=== PATIENT | male | born 1965 | race Caucasian/White ===

== ENCOUNTER 2017-03-30 07:27 | Outpatient (CLI) ==
--- NOTE | 2017-03-30 09:18 | US ---
EXAM: ULTRASOUND ABDOMEN COMPLETE HISTORY: Left upper quadrant abdominal pain FINDINGS: The liver size was within normal limits at 15 cm. The liver parenchyma demonstrated normal sonographi c appearance without evidence of intrahepatic biliary dilatation or focal lesion. Patent and hepatop edal main portal vein. The gallbladder demonstrates a tiny echogenic structure contiguous with the mucosa measuring about 0. 4 cm with no mobility or obvious posterior acoustic shadowing. The gallbladder was otherwise unremar kable. Gallbladder wall thickness was within normal limits at 0.3 cm. The common bile duct diameter was normal at 0.48 cm. Visualized pancreas was unremarkable. No ascites. IVC was open. Aorta had no evidence of aneurysmal caliber. The splenic length was normal at 11 cm. The right kidney measur ed 10.8 cm and the left kidney 10.5 cm. No hydronephrosis. IMPRESSION: 1. Tiny echogenic structure adherent to the gallbladder mucosa which may represent a small polyp or nonmobile calculus. The former is probably more likely. This structure measures about 0.4 cm in siz e. The gallbladder was otherwise unremarkable. Normal common bile duct diameter. 2. Otherwise within normal limits and unremarkable exam.
== END 2017-03-30 07:28 | disposition home or self-care (01) ==
LOC: RAD 07:27
PROVIDERS: ATTEND Internal Medicine
DX: R10.12 Left upper quadrant pain (principal)

== ENCOUNTER 2018-09-05 16:44 | Emergency (ER) ==
[2018-09-05 16:51] VITALS: BP 142/94; TEMP 100.3; BMI 33.0
--- NOTE | 2018-09-05 17:05 | ED.PDOC ---
General ED Provider: Dr. MARIAH RUIZ Chief Complaint: Nausea/Vomiting Stated Complaint: Nausea, vomiting and upper abdominal pain -onset after eatting out at 2:30 AM today at [employer] -[employer], gravy eggs and sausage. Has multiple episodes of vomiting and intense cramping pain in LUQ / mid epigastrium. Denies diarrhea Time Seen by Physician: 17:00 Mode of Arrival: Wheelchair Information Source: Patient Exam Limitations: No limitations Primary Care Provider: KEAGAN LOPEZ Nursing and Triage Documentation Reviewed and Agree: Yes Does patient meet sepsis criteria?: No System Inflammatory Response Syndrome: Not Applicable Sepsis Protocol: For patient's 13 years and over: Temp is 96.8 and below OR 101 and greater Pulse >90 BPM Resp >20/minute Acutely Altered Mental Status Are patient's symptoms suggestive of a new infection, such as: -Pneumonia -Skin, Soft Tissue -Endocarditis -UTI -Bone, Joint Infection -Implantable Device -Acute Abdominal Infection -Wound Infection -Meningitis -Blood Stream Catheter Infection -Unknown GI Complaint Exam - Abdominal Pain Complaint/Exam Onset: Sudden Duration: all day Symptoms Are: Still present Timing: Intermittent Initial Severity: Moderate Current Severity: Moderate Location of Pain: LUQ, Epigastric Radiates To: Reports: Back Character: Reports: Dull, Aching Aggravating: Reports: None Alleviating: Reports: None Associated Signs and Symptoms: Reports: Nausea, Vomiting. Denies: Diaphoresis, Fever, Cough, Chest pain, Dizziness, Back pain, Constipation, Blood in stool, Dysuria, Urinary frequency, Decreased urine output, Decreased appetite, Discharge, Diarrhea, Decreased activity Related History: Denies: Similar episode AAA Risk Factors: Reports: None Cardiac Risk Factors: Reports: None Testicular Torsion Risk Factors: Reports: None Surgical Obstruction Risk Factors: Reports: None Related Surgical History: Reports: None Abdominal Findings: Present: Abdominal distention Differential Diagnoses: Bowel Obstruction, Gastroenteritis Review of Systems - Review Of Systems Constitutional: Reports: Chills, Weakness Eyes: Reports: No symptoms Ears, Nose, Mouth, Throat: Reports: No symptoms Respiratory: Reports: No symptoms Cardiac: Reports: No symptoms GI: Reports: Abdomen distended, Abdominal pain, Poor fluid intake : Reports: No symptoms Musculoskeletal: Reports: No symptoms Skin: Reports: No symptoms Neurological: Reports: No symptoms Endocrine: Reports: No symptoms All Other Systems: Reviewed and Negative Past Medical History - Past Medical History Previously Healthy: Yes Endocrine: Reports: None Cardiovascular: Reports: None Respiratory: Reports: None Hematological: Reports: None Gastrointestinal: Reports: None Genitourinary: Reports: None Neuro/Psych: Reports: None Musculoskeletal: Reports: None Cancer: Reports: None - Surgical History General Surgical History: Reports: None - Family History Family History: Reports: None - Social History Smoking Status: Never smoker Hx Substance Use: No Alcohol Screening: Occasionally - Immunizations Tetanus Shot up to Date: Yes Physical Exam - Physical Exam Appearance: Ill-appearing, Obese Ill-appearing: Moderate Pain Distress: Mild Eyes: DELORIS, EOMI, Conjunctiva clear ENT: Ears normal, Nose normal, Oropharynx normal Neck: Supple Respiratory: Airway patent, Breath sounds clear, Breath sounds equal, Respirations nonlabored Cardiovascular: RRR, Pulses normal, No rub, No murmur GI/: Soft, No masses, No Organomegaly, Tender (LUQ/no guarding or rebound), Bowel sounds hypoactive Musculoskeletal: Normal strength Skin: Warm, Dry, Normal color Neurological: Sensation intact, Motor intact, Reflexes intact, Cranial nerves intact, Alert, Oriented Psychiatric: Affect appropriate Re-Evaluation - Re-Evaluation Time of Re-Evaluation: 18:15 Status: Improved Vital Signs Stable: Yes Pain Level: 2/10 Appearance: NAD Lungs: Clear Skin: Warm and Dry Neuro: Alert and Oriented X3 CV: RRR Additional Comments: Abdomen soft and non tender/no guarding Physician Notification - Case Discussed Physician Notified: Evening Physician advised of patient and treatmentlan. Time of Notification: 19:00 Critical Care Note - Critical Care Note Total Time (mins): 0 Course - Course Hematology/Chemistry: 09/05/18 17:05 09/05/18 17:05 Orders, Labs, Meds: Lab Review 09/05/18 09/05/18 09/05/18 17:05 17:05 17:05 WBC 9.92 RBC 5.15 Hgb 16.2 Hct 45.8 MCV 88.9 MCH 31.5 H MCHC 35.4 RDW Coeff of Abe 11.6 Plt Count 290 Immature Gran % (Auto) 0.2 Neut % (Auto) 86.6 Lymph % (Auto) 6.1 L Logan % (Auto) 6.3 Eos % (Auto) 0.6 Baso % (Auto) 0.2 Immature Gran # (Auto) 0.0 Neut # (Auto) 8.6 H Lymph # (Auto) 0.6 Logan # (Auto) 0.6 Eos # (Auto) 0.1 Baso # (Auto) 0.0 Sodium 141.6 Potassium 4.02 Chloride 103.7 Carbon Dioxide 22.2 Anion Gap 19.72 BUN 20.4 H Creatinine 0.98 Estimated GFR (MDRD) 80.00 BUN/Creatinine Ratio 20.81 Glucose 134.6 H Lactic Acid Calcium 9.57 Total Bilirubin 1.00 AST 38.0 ALT 39.5 Alkaline Phosphatase 72.8 Total Protein 8.41 H Albumin 4.96 Globulin 3.45 Albumin/Globulin Ratio 1.43 Lipase 71.9 Procalcitonin 0.20 Influ A Molecular Assay Influ B Molecular Assay 09/05/18 09/05/18 17:05 17:20 WBC RBC Hgb Hct MCV MCH MCHC RDW Coeff of Abe Plt Count Immature Gran % (Auto) Neut % (Auto) Lymph % (Auto) Logan % (Auto) Eos % (Auto) Baso % (Auto) Immature Gran # (Auto) Neut # (Auto) Lymph # (Auto) Logan # (Auto) Eos # (Auto) Baso # (Auto) Sodium Potassium Chloride Carbon Dioxide Anion Gap BUN Creatinine Estimated GFR (MDRD) BUN/Creatinine Ratio Glucose Lactic Acid 2.99 H Calcium Total Bilirubin AST ALT Alkaline Phosphatase Total Protein Albumin Globulin Albumin/Globulin Ratio Lipase Procalcitonin Influ A Molecular Assay Negative by naat Influ B Molecular Assay Negative by naat Orders Category Date Time Status NPO REMINDER: IMAGING ONCE CARE 09/05/18 17:29 Completed IV [ED IV/MEDIPORT/POWERPORT] .ONCE EMERGENCY 09/05/18 17:06 Active BLOOD CULTURE (ED ONLY) Stat LAB 09/05/18 17:20 Completed CBC W/ AUTO DIFF Stat LAB 09/05/18 17:05 Completed CMP [COMPREHENSIVE METABOLIC PANEL] Stat LAB 09/05/18 17:05 Completed FLU A & B MOLECULAR [FLU A/B MOLECULAR] Stat LAB 09/05/18 17:05 Completed LACTIC ACID Stat LAB 09/05/18 17:20 Completed LIPASE Stat LAB 09/05/18 17:05 Completed PROCALCITONIN Stat LAB 09/05/18 17:05 Completed RAPID STREP SCREEN [MOLECULAR GROUP A STREP] Stat LAB 09/05/18 17:05 Completed 0.9 % Sodium Chloride [Saline Flush] MEDS 09/05/18 17:06 Discontinued 1 syr IVF PRN PRN Famotidine Inj [Pepcid] MEDS 09/05/18 17:09 Discontinued 20 mg IVP ONCE STA Sodium Chloride 0.9% [Sodium Chloride] 1,000 ml MEDS 09/05/18 17:06 Discontinued IV BOLUS Sodium Chloride 0.9% [Sodium Chloride] 1,000 ml MEDS 09/05/18 18:[address] ABDOMEN/PELVIS W CONTRAST Stat RADS 09/05/18 17:28 Completed Medications Discontinued Medications Generic Name Dose Route Start Last Admin Trade Name Freq PRN Reason Stop Dose Admin Famotidine 20 mg 09/05/18 17:09 09/05/18 17:20 Pepcid IVP 09/05/18 17:10 20 mg ONCE STA Administration Sodium Chloride 1,000 mls @ 1,000 mls/hr 09/05/18 17:06 09/05/18 17:20 Sodium Chloride IV 09/05/18 18:05 1,000 mls/hr BOLUS STA Administration Sodium Chloride 1,000 mls @ 1,000 mls/hr 09/05/18 18:33 09/05/18 18:47 Sodium Chloride IV 09/05/18 19:32 1,000 mls/hr BOLUS STA Administration Sodium Chloride 1 syr 09/05/18 17:06 Saline Flush IVF PRN PRN To flush IV Vital Signs: Temp Pulse Resp BP Pulse Ox 09/05/18 16:45 100.3 F H 138 H 16 142/94 H 96 Departure - Departure Time of Disposition: 19:40 Disposition: HOME SELF-CARE Discharge Problem: Gastroenteritis, Dehydration Instructions: Dehydration (ED), Gastroenteritis (ED) Condition: Good Pt referred to PMD for follow-up: Yes IPMP verified?: No Additional Instructions: Advance diet as tolerated. Clear liquids for next 12 hr-24 hrs then advance to full liquid, soft diet etc. Re turn to ER if worsens Allergies/Adverse Reactions: Allergies No Known Allergies Allergy (Unverified 09/05/18 17:36) Home Medications: Ambulatory Orders Hydrocodone Bit/Acetaminophen [[place] 10-325] 1 tab PO PRN PRN 09/05/18 Rabeprazole Sodium [Aciphex] 20 mg PO PRN PRN 09/05/18 Disposition Discussed With: Patient, Family Additional Comments Additional Comments: 1805 hrs Discussed findings with Dr Lopez. Will infuse additional liter of NS fluids, advance diet and if tolerates discharge to home after fluids infused.
[2018-09-05] MEDS ORDERED: SODIUM CHLORIDE 1,000 ML IV STA ×2 (17:06→18:33)
[2018-09-05] MEDS ORDERED: PEPCID IVP STA (17:09)
--- NOTE | 2018-09-05 18:18 | CT ---
Exam. CT of abdomen and pelvis with contrast History. Abdominal pain Comparison. CT 09/09/2011 Technique Axial scans acquired 3 mm slice thicknesses following IV contrast. Coronal and sagittal sequence com pleted FINDINGS Images at the level lower thorax show no pulmonary infiltrate or pleural fluid. Abdomen. There is no intraperitoneal free air attenuation of the liver is slightly less and spleen. No hepatic mass is seen. There is no ascites. There is no inflammation the pancreas. Adrenal glan ds unremarkable. There is no cholelithiasis or biliary duct dilatation. No renal calcification. 1 cm cyst mid-left kidney. No obstruction either kidney or ureter Aorta is normal caliber. There is n o abdominal adenopathy. Tiny fat containing umbilical hernia.There are minimally distended fluid-hillary led loops of small bowel, possible mild enteritis. Appendix is not dilated. Minimal diverticulosis rectosigmoid colon without diverticulitis. Pelvis. No free fluid is seen. No hernia. Minimal prostatic hypertrophy. Skeletal structures. Multilevel degenerate disc disease. Disc space narrowing L3-L4 and L4-L5 level with some facet arthropathy lower lumbar spine. No osteolytic or blastic lesions seen involving bon e. Impression 1. No cholelithiasis or biliary dilatation. 2. No renal calcification is seen. No obstruction of either kidney or ureter. 3. There are minimally distended fluid-filled loops of small bowel without bowel obstruction. Appen emili is not dilated. There is minimal diverticulosis rectosigmoid colon without diverticulitis.
[2018-09-05] MEDS ORDERED: LACTATED RINGERS 1,000 ML IV STA (18:31)
== END 2018-09-05 19:43 | disposition home or self-care (01) ==
LOC: ED 16:44
DX: K52.9 Noninfective gastroenteritis and colitis, unspecified (principal); E86.0 Dehydration; R53.1 Weakness
CPT/HCPCS: 36415; 80053; 83605; 83690; 84145; 85025; 87040; 87502; 87651; 96361; 96374; 96375; 99283

== ENCOUNTER 2019-02-22 07:24 | Day surgery (SDC) ==
[2019-02-22] MEDS ORDERED: LIDOCAINE 1% 20 ML MDV ID STA (07:38)
[2019-02-22 07:42] VITALS: TEMP 97.2
[2019-02-22] MEDS ORDERED: VERSED ONE (09:50)
[2019-02-22] MEDS ORDERED: DIPRIVAN 20 ML VIAL IVP ONE (09:50)
[2019-02-22 10:30] VITALS: BP 135/78
--- NOTE | 2019-02-23 10:29 | OP ---
INDICATIONS FOR PROCEDURE: 54-year-old gentleman presents for screening colonoscopy. He does have a family history of colon polyps involving his father. MEDICATIONS: SEE ANESTHESIA NOTES. PROCEDURE: COLONOSCOPY. REPORT: The risks, benefits, alternatives and limitations were discussed in detail with the patient. Informed consent was obtained. After adequate sedation was achieved, a digital rectal exam revealed good tone, no masses. The colonoscope was introduced into the rectum and advanced under direct visual guidance to the cecum. The cecum was identified by the appendiceal orifice and IC valve. I then slowly withdrew the scope in a circumferential manner examining the mucosa quite carefully. I looked on the proximal and distal side of folds and flexures as best as possible. I was able to retroflex the scope in the right colon and left colon to increase visualization. The colonic mucosa was unremarkable its entire length including on retroflex view of the anal canal. The prep was good. The withdrawal time was 9 minutes and 17 seconds. The patient tolerated the procedure well with stable vital signs and pulse oximetry throughout. IMPRESSION: 1. Normal colonoscopy exam. RECOMMENDATIONS: 1. High fiber diet. 2. Office visit as needed. 3. With his family history of colon polyps involving his father, consider a screening colonoscopy examination again in 5 years, sooner if there are any signs or symptoms to indicate otherwise. CC: DR. ERICKA SHARP
== END 2019-02-22 11:00 | disposition home or self-care (01) ==
LOC: SURG 07:24
PROVIDERS: ATTEND Internal Medicine Gastroenterology
DX: Z12.11 Encounter for screening for malignant neoplasm of colon (principal)